=== PATIENT | male | born 1950 | race Caucasian/White ===

== ENCOUNTER → 2017-01-20 | Outpatient (CLI) | payer MEDICARE ==
[~2017-01-20] MED LIST: ASPI-496 PO; CLOP75TA22 PO; HYDR-3144 PO; OXYM5TAB PO; ROSU20TA PO; TADA5TAB2 PO; TAMS-11 PO
[2017-01-20 11:25] LABS: BLOOD UREA NITROGEN 20 mg/dL (7-18)
[2017-01-20 11:30] LABS: ASPARTATE AMINO TRANSFERASE 45 U/L (15-37)
== END | disposition home or self-care (01) ==
LOC: STAR 10:10
PROVIDERS: ATTEND Neurological Surgery
DX: Z01.818 Encounter for other preprocedural examination (principal); M48.06 Spinal stenosis, lumbar region; R79.1 Abnormal coagulation profile
CPT/HCPCS: 36415; 71020; 80053; 85025; 85610; 85730; 93005

== ENCOUNTER 2017-02-03 05:42 | Day surgery (SDC) | payer MEDICARE ==
[~2017-02-03] VITALS: Ht 177.8 cm; Wt 58.1 kg
[2017-02-03] MEDS ORDERED: LACTATED RINGERS 1,000 ML IV SCH (06:41)
[2017-02-03 06:42] VITALS: BP 143/86
[2017-02-03] MEDS ORDERED: THROMBIN 5,000 UNIT VIAL TP ONE (07:04)
[2017-02-03] MEDS ORDERED: BUPIVACAINE/PF-EPI 0.5% 1:200K ONE (07:04)
[2017-02-03] MEDS ORDERED: BACITRACIN 50,000 UNIT ONE (07:04)
[2017-02-03] MEDS ORDERED: FENTANYL PF 250 MCG/5ML ONE (07:18)
[2017-02-03] MEDS ORDERED: HYDROmorphone 2 MG/ML, 1ML ONE ×2 (07:18→09:48)
[2017-02-03] MEDS ORDERED: MIDAZOLAM 1 MG/ML, 2ML ONE (07:18)
[2017-02-03] MEDS ORDERED: KETAMINE 10 MG/ML, 20ML ONE (07:18)
[2017-02-03] MEDS ORDERED: EPHEDRINE 50 MG/ML, 1ML ONE (07:24)
[2017-02-03] MEDS ORDERED: SUCCINYLCHOLINE 20 MG/ML, 10ML ONE (07:24)
[2017-02-03] MEDS ORDERED: PHENYLEPHRINE 10 MG/ML ONE (07:24)
[2017-02-03] MEDS ORDERED: DEXAMETHASONE 4 MG/ML, 5ML ONE (07:24)
[2017-02-03] MEDS ORDERED: CEFAZOLIN 1,000 MG ONE (07:24)
[2017-02-03] MEDS ORDERED: PROPOFOL 10 MG/ML, 20ML ONE (07:24)
[2017-02-03] MEDS ORDERED: ONDANSETRON 2MG/ML, 2ML ONE (07:24)
[2017-02-03] MEDS ORDERED: ACETAMINOPHEN 325 MG TABLET PO PRN (08:30)
[2017-02-03] MEDS ORDERED: PROMETHAZINE 25 MG/ML, 1ML IV PRN (08:30)
[2017-02-03] MEDS ORDERED: MEPERIDINE/PF 25MG/0.5ML IVPush PRN (08:30)
[2017-02-03] MEDS ORDERED: ALBUTEROL/IPRATROPIUM 2.5MG/0.5MG, 3 ML NPPB PRN (08:30)
[2017-02-03] MEDS ORDERED: METOCLOPRAMIDE 5 MG/ML, 2ML IV PRN (08:30)
[2017-02-03] MEDS ORDERED: OXYcodone 5 MG/5 ML ORAL.SOL UDC PO PRN (08:30)
[2017-02-03] MEDS ORDERED: LABETALOL 5MG/ML, 20ML IV PRN (08:30)
[2017-02-03] MEDS ORDERED: ONDANSETRON 2MG/ML, 2ML IVPush PRN (08:30)
[2017-02-03] MEDS ORDERED: FENTANYL PF 100 MCG/2ML IV PRN (08:30)
[2017-02-03] MEDS ORDERED: MIDAZOLAM 1 MG/ML, 2ML IV PRN (08:30)
[2017-02-03] MEDS ORDERED: hydrALAzine 20 MG/ML, 1ML IV PRN (08:30)
[2017-02-03] MEDS ORDERED: ACETAMINOPHEN 650 MG/20.3 ML UDC ONE (09:48)
[2017-02-03] MEDS ORDERED: ACETAMINOPHEN 325 MG/10.15 ML UDC ONE (09:48)
[2017-02-03] MEDS ORDERED: OXYcodone 5 MG/5 ML ORAL.SOL UDC ONE (09:49)
[2017-02-03] MEDS: HYDROmorphone 1 MG/ML, 1ML IV PRN ×2 (10:10→10:17)
[2017-02-03] MEDS ORDERED: OXYcodone/APAP 10/325MG TABLET ONE (14:14)
[2017-02-03] MEDS ORDERED: OXYcodone/APAP 10/325MG TABLET PO ONE (14:30)
== END 2017-02-03 15:45 ==
LOC: OUT 05:42
PROVIDERS: ATTEND Neurological Surgery
DX: M51.16 Intervertebral disc disorders with radiculopathy, lumbar region (principal); M47.816 Spondylosis without myelopathy or radiculopathy, lumbar region; M48.06 Spinal stenosis, lumbar region; I48.91 Unspecified atrial fibrillation; E78.00 Pure hypercholesterolemia, unspecified; I25.10 Atherosclerotic heart disease of native coronary artery without angina pectoris; I25.2 Old myocardial infarction; E78.5 Hyperlipidemia, unspecified; Z72.89 Other problems related to lifestyle
CPT/HCPCS: 63047; 63048; 63056; 72110; J0330; J0690; J1100; J1170; J2250; J2370; J2405; J2704; J3010; J7120